=== PATIENT | male | born 1955 | race Caucasian/White ===

== ENCOUNTER 2016-04-22 01:42 | Emergency (ER) | payer OTHER ==
[~2016-04-22] VITALS: Ht 188 cm; Wt 138.3 kg
[2016-04-22] MEDS ORDERED: FAMOTIDINE/PF INJ 20 MG/2 ML VIAL IV ONE ×2 (02:00→02:13)
[2016-04-22] MEDS ORDERED: BELLADONNA /PHENOBARB 5 ML UDC 5 ML UDC PO ONE (02:00)
[2016-04-22] MEDS ORDERED: BELLADONNA /PHENOBARB 5 ML UDC 5 ML UDC ONE (02:13)
[2016-04-22 02:30] LABS: BASOPHILS % (AUTO) 0.3 % (0.0-2.0); DIFF TOTAL % 100 %; EOSINOPHILS # (AUTO) 0.2 /CMM (0.0-0.7); EOSINOPHILS % (AUTO) 1.2 % (0.0-6.0); HEMATOCRIT 46 % (39-51); HEMOGLOBIN 15.4 g/dL (13.5-17.5); LYMPHOCYTES # (AUTO) 2.1 /CMM (0.8-4.8); MEAN CORPUSCULAR HEMOGLOBIN 28 PG (26.0-33.0); MEAN CORPUSCULAR HGB CONC 33 g/dl (31.0-36.0); MEAN CORPUSCULAR VOLUME 84 fL (80-96); MONOCYTES # (AUTO) 0.6 /CMM (0.1-1.30); MONOCYTES % (AUTO) 4.7 % (2.0-12.0); NEUTROPHILS # (AUTO) 10.2 /CMM (1.8-8.9); NEUTROPHILS % (AUTO) 77.8 % (43.0-81.0); PLATELET COUNT (AUTO) 332 /CMM (150-450); RED BLOOD CELL COUNT(AUTO) 5.48 MIL/uL (4.5-6.0); WHITE BLOOD COUNT (AUTO) 13.1 K/uL (4.3-11.0)
[2016-04-22] MEDS ORDERED: MORPHINE SULFATE INJ 2 MG/ML DISP.SYRIN ONE (02:31)
[2016-04-22 02:33] LABS: ANION GAP 16 (5-14); CALCIUM, SERUM 9.2 mg/dL (8.5-10.1); CARBON DIOXIDE 25 mmol/L (21-32); CHLORIDE 107 mmol/L (98-107); CREATININE 1.4 mg/dL (0.6-1.3); GFR 52 mL/min (>60); GLUCOSE 141 mg/dL (74-106); POTASSIUM 4.2 mmol/L (3.5-5.1); SODIUM SERUM 143 mmol/L (136-145); UREA NITROGEN, BLOOD 17 mg/dL (7-18)
[2016-04-22 02:41] LABS: ALANINE AMINOTRANSFERASE 52 U/L (12-78); ALBUMIN 3.4 g/dL (3.4-5.0); ASPARTATE AMINOTRANSFERASE 19 U/L (15-37); BILIRUBIN,DIRECT 0.1 mg/dL (0.0-0.2); BILIRUBIN,TOTAL 0.3 mg/dL (0.2-1.0); INDIRECT BILIRUBIN 0.2 mg/dL (0.0-1.1); TOTAL PROTEIN, SERUM 7.6 g/dL (6.4-8.2); TROPONIN I < 0.017 ng/mL (0.00-0.056)
[2016-04-22] MEDS ORDERED: MORPHINE SULFATE INJ 2 MG/ML DISP.SYRIN IV ONE (03:00)
[2016-04-22 07:32] VITALS: BP 139/81
== END 2016-04-22 07:32 | disposition home or self-care (01) ==
LOC: ER 01:46
DX: R10.13 Epigastric pain (principal); I10 Essential (primary) hypertension; E03.9 Hypothyroidism, unspecified
CPT/HCPCS: 36415; 71010-TC; 76705-TC; 80048-TC; 80076-TC; 83690-TC; 84484-TC; 85025-TC; A4606; J2270; J3490; Z7610

== ENCOUNTER 2016-09-29 02:02 | Emergency (ER) | payer OTHER ==
[~2016-09-29] VITALS: Ht 188 cm; Wt 113.4 kg
--- NOTE | 2016-09-29 02:16 | NUR ---
PT BIBSELF C/O SOB SINCE 1300 AFTER TAKING MEDICATION MINOCYLCINE FOR RASH ON NECK. PT AOX4 RR EVEN AND UNLABORED. NO SOB NOTED. NAD NOTED. NO NVD AT THIS TIME. PT NOT DIAPHORETIC. PT GOWNED AND PLACED ON MONITOR WAITING FOR MD STEPHENS. PT NOTED ANXIOUS.
--- NOTE | 2016-09-29 02:25 | NUR ---
DR. CAPONE AT BEDSIDE FOR EVAL.
--- NOTE | 2016-09-29 03:06 | NUR ---
DR. CAPONE SPEAKING TO PT REGARDING RESULTS.
--- NOTE | 2016-09-29 03:10 | NUR ---
Patient discharged to home in stable condition. Written and verbal after care instructions given. Patient verbalizes understanding of instruction. ambulatory with a steady gait
[2016-09-29 03:11] VITALS: BP 142/78
== END 2016-09-29 03:13 | disposition home or self-care (01) ==
LOC: ER 02:05
DX: F41.9 Anxiety disorder, unspecified (principal); I10 Essential (primary) hypertension; K21.9 Gastro-esophageal reflux disease without esophagitis
CPT/HCPCS: 93005; 99284; A4606; Z7610

== ENCOUNTER 2016-11-20 02:01 | Emergency (ER) | payer OTHER ==
[~2016-11-20] VITALS: Ht 188 cm; Wt 138.3 kg
--- NOTE | 2016-11-20 02:06 | NUR ---
61 YO MALE BIB SELF, PT C/O MID STERNAL CP X 2.5 HOURS, NO SOB NOTED. PT DESCRIBES PAIN BURNING LIKE, NON RADIATING, 3/10. PT SKIN WARM AND DRY, RR EVEN AND UNLABORED. PT GOWNED, PALCED ON PRINTER APPRENTICE. AWAITING ORDERS FROM PROVIDER, WILL CONTINUE TO MONITOR
--- NOTE | 2016-11-20 02:15 | NUR ---
18G RIGHT AC IV STARTED, BLOOD SAMPLE OBTAINED AND SENT TO LAB
[2016-11-20] MEDS ORDERED: ASPIRIN 81 MG TAB.CHEW ONE (02:24)
[2016-11-20] MEDS ORDERED: ASPIRIN 325 MG TABLET PO ONE (02:30)
[2016-11-20 02:43] LABS: BASOPHILS % (AUTO) 0.3 % (0.0-2.0); EOSINOPHILS # (AUTO) 0.2 /CMM (0.0-0.7); EOSINOPHILS % (AUTO) 1.8 % (0.0-6.0); HEMATOCRIT 44 % (39-51); HEMOGLOBIN 14.8 g/dL (13.5-17.5); LYMPHOCYTES # (AUTO) 2.8 /CMM (0.8-4.8); LYMPHOCYTES % (AUTO) 27.8 % (20.0-44.0); MEAN CORPUSCULAR HEMOGLOBIN 28 PG (26.0-33.0); MEAN CORPUSCULAR HGB CONC 33 g/dl (31.0-36.0); MEAN CORPUSCULAR VOLUME 84 fL (80-96); MONOCYTES # (AUTO) 0.8 /CMM (0.1-1.30); MONOCYTES % (AUTO) 7.8 % (2.0-12.0); NEUTROPHILS # (AUTO) 6.2 /CMM (1.8-8.9); NEUTROPHILS % (AUTO) 62.3 % (43.0-81.0); PLATELET COUNT (AUTO) 330 /CMM (150-450); RDW COEFFICIENT OF VARIATION 14.2 (11.5-15.0); RED BLOOD CELL COUNT(AUTO) 5.27 MIL/uL (4.5-6.0)
[2016-11-20 02:45] LABS: INR 0.89 (0.87-1.13); PROTHROMBIN TIME 9.5 SECS (9.5-12.7)
[2016-11-20 02:55] LABS: CARBON DIOXIDE 30 mmol/L (21-32)
[2016-11-20 02:57] LABS: TROPONIN I < 0.017 ng/mL (0.00-0.056)
[2016-11-20 03:05] LABS: SODIUM SERUM 140 mmol/L (136-145)
[2016-11-20 03:06] LABS: CHLORIDE 104 mmol/L (98-107); GLUCOSE 132 mg/dL (74-106); POTASSIUM 3.6 mmol/L (3.5-5.1); UREA NITROGEN, BLOOD 14 mg/dL (7-18)
[2016-11-20 03:30] VITALS: BP 144/94
--- NOTE | 2016-11-20 03:31 | NUR ---
PT RESTING IN ER BED, NAD NOTED, PT IS ON PILOT SUBMERSIBLE. VITAL SIGNS UPDATED.
[2016-11-20] MEDS ORDERED: SIMETHICONE 80 MG TAB.CHEW ONE (05:46)
--- NOTE | 2016-11-20 05:49 | NUR ---
MEDICTAED PT PER VERBAL ORDER MD GUERRERO: SIMETHICONE 80MG CHEW TAB PO
== END 2016-11-20 06:21 | disposition other institution (70) ==
LOC: ER 02:03
DX: R07.89 Other chest pain (principal); K21.9 Gastro-esophageal reflux disease without esophagitis; E78.00 Pure hypercholesterolemia, unspecified
CPT/HCPCS: 36415; 71010; 80048; 84484 ×2; 85025; 85730; 93005 ×2; 99285; A4606; Z7610

== ENCOUNTER 2017-11-13 20:16 | Emergency (ER) | payer OTHER ==
[~2017-11-13] VITALS: Ht 180.3 cm; Wt 114.8 kg
--- NOTE | 2017-11-13 20:16 | NUR ---
"CP [id number]" 8 PRESSURE LIKE AND SHARP PT IS HYPERTENSIVE BUT OTHERWISE VSS NO ACUTE DISTRESS AT THIS TIME. PT IS ALERT AND ORIENTED X3 ABLE TO MAKE NEEDS KNOWN. WILL CONTINUE TO MONITOR FOR ANY CHANGES DURING THE SHIFT.
--- NOTE | 2017-11-13 20:17 | NUR ---
ER MD RIVAS AT BEDSIDE FOR EVAL
[2017-11-13 20:56] LABS: BASOPHILS # (AUTO) 0.2 /CMM (0.0-0.2); BASOPHILS % (AUTO) 2.1 % (0.0-2.0); EOSINOPHILS % (AUTO) 1.8 % (0.0-6.0); HEMATOCRIT 47 % (39-51); HEMOGLOBIN 15.4 g/dL (13.5-17.5); LYMPHOCYTES # (AUTO) 2.7 /CMM (0.8-4.8); LYMPHOCYTES % (AUTO) 23.2 % (20.0-44.0); MEAN CORPUSCULAR HEMOGLOBIN 28 PG (26.0-33.0); MEAN CORPUSCULAR HGB CONC 33 g/dl (31.0-36.0); MEAN CORPUSCULAR VOLUME 85 fL (80-96); MONOCYTES # (AUTO) 0.9 /CMM (0.1-1.30); MONOCYTES % (AUTO) 8.1 % (2.0-12.0); NEUTROPHILS # (AUTO) 7.5 /CMM (1.8-8.9); NEUTROPHILS % (AUTO) 64.8 % (43.0-81.0); PLATELET COUNT (AUTO) 370 /CMM (150-450); RDW COEFFICIENT OF VARIATION 13.8 (11.5-15.0); RED BLOOD CELL COUNT(AUTO) 5.51 MIL/uL (4.5-6.0); WHITE BLOOD COUNT (AUTO) 11.5 K/uL (4.3-11.0)
[2017-11-13 21:07] LABS: CARBON DIOXIDE 29 mmol/L (21-32); CHLORIDE 107 mmol/L (98-107); CREATININE 1.2 mg/dL (0.6-1.3); GLUCOSE 126 mg/dL (74-106); POTASSIUM 3.9 mmol/L (3.5-5.1); SODIUM SERUM 140 mmol/L (136-145); UREA NITROGEN, BLOOD 16 mg/dL (7-18)
--- NOTE | 2017-11-13 21:09 | NUR ---
POWER CRANE OPERATOR AT BEDSIDE
[2017-11-13 21:16] LABS: TROPONIN I < 0.017 ng/mL (0.00-0.056)
[2017-11-13 21:25] LABS: INR 0.91 (0.85-1.15)
[2017-11-13] MEDS ORDERED: HYDROMORPHONE INJ 2 MG/ML DISP.SYRIN IV ONE (21:30)
[2017-11-13] MEDS ORDERED: MAG HYDROX/AL HYDROX/SIMETH 30 ML UDC PO ONE (21:30)
[2017-11-13] MEDS ORDERED: METOCLOPRAMIDE HCL 10 MG/2 ML VIAL IV ONE (21:30)
[2017-11-13] MEDS ORDERED: HYDROMORPHONE INJ 2 MG/ML DISP.SYRIN ONE (21:35)
[2017-11-13] MEDS ORDERED: METOCLOPRAMIDE HCL 10 MG/2 ML VIAL ONE (21:35)
[2017-11-13] MEDS ORDERED: MAG HYDROX/AL HYDROX/SIMETH 30 ML UDC ONE (21:35)
[2017-11-13] MEDS ORDERED: FAMOTIDINE (20 MG) 20 MG TABLET ONE (22:29)
[2017-11-13 22:30] LABS: ALBUMIN 3.2 g/dL (3.4-5.0); BILIRUBIN,DIRECT 0.1 mg/dL (0.0-0.2); BILIRUBIN,TOTAL 0.5 mg/dL (0.2-1.0); TOTAL PROTEIN, SERUM 7.4 g/dL (6.4-8.2)
[2017-11-13] MEDS ORDERED: FAMOTIDINE (20 MG) 20 MG TABLET PO ONE (22:30)
--- NOTE | 2017-11-13 23:40 | NUR ---
AWAITING 2ND TROPONIN BLOOD DRAW
[2017-11-14 01:08] VITALS: BP 169/80
== END 2017-11-14 01:09 | disposition home or self-care (01) ==
LOC: ER 20:17
DX: R07.89 Other chest pain (principal); R10.13 Epigastric pain; K21.9 Gastro-esophageal reflux disease without esophagitis; Z98.890 Other specified postprocedural states
CPT/HCPCS: 36415; 71045; 80048; 80076; 83690; 84484 ×2; 85025; 85730; 93005; 96374; 96375; 99285; A4606; J1170; J2765; J7050; Z7610

== ENCOUNTER 2018-04-16 10:54 | Emergency (ER) | payer OTHER ==
[~2018-04-16] VITALS: Ht 188 cm; Wt 156.5 kg
--- NOTE | 2018-04-16 11:03 | NUR ---
DR REYES AT BEDSIDE
[2018-04-16] MEDS ORDERED: ONDANSETRON HCL/PF 4 MG/2 ML VIAL ONE (11:11)
[2018-04-16] MEDS ORDERED: KETOROLAC TROMETHAMINE 15 MG/ML VIAL ONE (11:11)
[2018-04-16] MEDS ORDERED: HYDROMORPHONE INJ 0.5 MG/0.5 ML SYRINGE ONE (11:12)
--- NOTE | 2018-04-16 11:17 | NUR ---
C/O SHARP FLANK PAIN SINCE THIS MORNING, 10/10 PS, AFEBRILE. HX KIDNEY STONES. PT IS AOX4, AMB, VSS, RR EVEN AND UNLABORED. SKIN WARM, DRY, INTACT. NO ACUTE DISTRESS NOTED. DENIES SOB, DIZZINESS, WEAKNESS, N/V. READY FOR EVAL.
[2018-04-16 11:26] LABS: BASOPHILS # (AUTO) 0.1 /CMM (0.0-0.2); BASOPHILS % (AUTO) 0.9 % (0.0-2.0); EOSINOPHILS % (AUTO) 2.2 % (0.0-6.0); HEMATOCRIT 46 % (39-51); HEMOGLOBIN 15.8 g/dL (13.5-17.5); LYMPHOCYTES # (AUTO) 1.8 /CMM (0.8-4.8); LYMPHOCYTES % (AUTO) 22.4 % (20.0-44.0); MEAN CORPUSCULAR HGB CONC 35 g/dl (31.0-36.0); MEAN CORPUSCULAR VOLUME 85 fL (80-96); MONOCYTES # (AUTO) 0.5 /CMM (0.1-1.30); MONOCYTES % (AUTO) 5.7 % (2.0-12.0); NEUTROPHILS # (AUTO) 5.6 /CMM (1.8-8.9); NEUTROPHILS % (AUTO) 68.8 % (43.0-81.0); PLATELET COUNT (AUTO) 311 /CMM (150-450); RED BLOOD CELL COUNT(AUTO) 5.38 MIL/uL (4.5-6.0); WHITE BLOOD COUNT (AUTO) 8.1 K/uL (4.3-11.0)
[2018-04-16 11:27] LABS: APPEARANCE,URINE Cloudy (CLEAR); BILIRUBIN,URINE SMALL (NEGATIVE); BLOOD, URINE Large Ery/uL (NEGATIVE); COLOR,URINE Yellow (YELLOW); KETONES,URINE Trace (NEGATIVE); LEUKOCYTE ESTERASE ,URINE Negative (NEGATIVE); NITRITE, URINE Negative (NEGATIVE); PH,URINE 5.5 (5.0-8.0); PROTEIN,URINE Negative (NEGATIVE); UGLUCOSE Negative (NEGATIVE); UROBILINOGEN,URINE 0.2 EU/dL (0.2)
[2018-04-16] MEDS ORDERED: ONDANSETRON HCL/PF 4 MG/2 ML VIAL IVP ONE (11:30)
[2018-04-16] MEDS ORDERED: KETOROLAC TROMETHAMINE INJ 30 MG/ML VIAL IV ONE (11:30)
[2018-04-16] MEDS ORDERED: HYDROMORPHONE INJ 2 MG/ML DISP.SYRIN IV ONE (11:30)
[2018-04-16] MEDS ORDERED: IV NS 0.9% 1,000 ML BAG IV ONE (11:30)
[2018-04-16 11:31] LABS: CALCIUM, SERUM 8.8 mg/dL (8.5-10.1); CREATININE 1.1 mg/dL (0.6-1.3); POTASSIUM 4.2 mmol/L (3.5-5.1)
--- NOTE | 2018-04-16 11:36 | NUR ---
PT TAKEN TO CT VIA [facility]
--- NOTE | 2018-04-16 11:45 | NUR ---
PT BACK FROM CT. MESHA WELL. RECONNECTED IVF AND ON MONITOR.
[2018-04-16 11:53] LABS: BACTERIA,URINE None seen /HPF (None Seen); WBC,URINE 0-2 /HPF (0-3)
[2018-04-16 11:54] LABS: SQUAMOUS EPITHELIAL CELL,UR Few /HPF (None Seen)
--- NOTE | 2018-04-16 12:26 | NUR ---
Patient discharged to home in stable condition. Written and verbal after care instructions given. Patient verbalizes understanding of instruction.
--- NOTE | 2018-04-16 12:26 | NUR ---
IV removed. Catheter intact and site benign. Pressure and 4x4 applied to site. No bleeding noted.
[2018-04-16 12:27] VITALS: BP 141/64
== END 2018-04-16 12:24 | disposition home or self-care (01) ==
LOC: ER 10:55
DX: M54.9 Dorsalgia, unspecified (principal); R11.2 Nausea with vomiting, unspecified; K21.9 Gastro-esophageal reflux disease without esophagitis; Z90.49 Acquired absence of other specified parts of digestive tract; Z98.890 Other specified postprocedural states
CPT/HCPCS: 36415; 74176; 80048; 81001; 85025; 96361; 96374; 96375; 99284; A4606; J1885; J2405; J7030; Z7610; 81000-TC

== ENCOUNTER 2018-05-21 23:52 | Emergency (ER) | payer OTHER ==
[~2018-05-21] VITALS: Ht 188 cm; Wt 152.0 kg
[2018-05-22 00:32] VITALS: BP 177/93
[2018-05-22] MEDS ORDERED: KETOROLAC TROMETHAMINE INJ 60 MG/2 ML VIAL IM ONE ×2 (01:00→01:53)
[2018-05-22] MEDS ORDERED: HYDROMORPHONE 1 MG/1 ML DISP.SYRIN IM ONE (01:00)
[2018-05-22 01:29] LABS: APPEARANCE,URINE CLEAR (CLEAR); BILIRUBIN,URINE NEGATIVE (NEGATIVE); BLOOD, URINE 3+ Ery/uL (NEGATIVE); COLOR,URINE YELLOW (YELLOW); KETONES,URINE NEGATIVE (NEGATIVE); LEUKOCYTE ESTERASE ,URINE NEGATIVE (NEGATIVE); NITRITE, URINE NEGATIVE (NEGATIVE); PH,URINE 5.5 (5.0-8.0); PROTEIN,URINE TRACE mg/dl (NEGATIVE); UGLUCOSE NEGATIVE (NEGATIVE); UROBILINOGEN,URINE 0.2 EU/dL (0.2)
[2018-05-22 01:38] LABS: BACTERIA,URINE Few /HPF (None Seen); RBC,URINE TOO NUMEROUS TO COUN /HPF (0-2); SQUAMOUS EPITHELIAL CELL,UR Rare /HPF (None Seen)
[2018-05-22] MEDS ORDERED: HYDROMORPHONE 1 MG/1 ML DISP.SYRIN ONE (01:54)
== END 2018-05-22 02:30 | disposition home or self-care (01) ==
LOC: ER 23:55
DX: N23 Unspecified renal colic (principal); K21.9 Gastro-esophageal reflux disease without esophagitis; Z87.442 Personal history of urinary calculi; Z98.890 Other specified postprocedural states; Z87.891 Personal history of nicotine dependence; Z60.2 Problems related to living alone
CPT/HCPCS: 81001; 96372 ×2; 99283; A4606; J1170; J1885; 81000-TC

== ENCOUNTER 2019-03-19 16:01 | Emergency (ER) | payer OTHER ==
[~2019-03-19] VITALS: Ht 188 cm; Wt 149.7 kg
--- NOTE | 2019-03-19 16:26 | NUR ---
PATIENT ARRIVED AT UNIT. REPORTED "Chest pain started around 2pm mid chest with Nausea. +ROLON". CONNECTED TO MONITOR. WILL CONTINUE TO MONITOR ACOORDINGLY
[2019-03-19 16:52] LABS: BASOPHILS # (AUTO) 0.1 /CMM (0.0-0.2); BASOPHILS % (AUTO) 0.8 % (0.0-2.0); EOSINOPHILS % (AUTO) 2.2 % (0.0-6.0); HEMATOCRIT 42 % (39-51); HEMOGLOBIN 14.1 g/dL (13.5-17.5); LYMPHOCYTES # (AUTO) 1.9 /CMM (0.8-4.8); LYMPHOCYTES % (AUTO) 21.5 % (20.0-44.0); MEAN CORPUSCULAR HGB CONC 33 g/dl (31.0-36.0); MEAN CORPUSCULAR VOLUME 84 fL (80-96); MONOCYTES # (AUTO) 0.6 /CMM (0.1-1.30); MONOCYTES % (AUTO) 7.3 % (2.0-12.0); NEUTROPHILS # (AUTO) 5.9 /CMM (1.8-8.9); NEUTROPHILS % (AUTO) 68.2 % (43.0-81.0); PLATELET COUNT (AUTO) 337 /CMM (150-450); RED BLOOD CELL COUNT(AUTO) 5.05 MIL/uL (4.5-6.0); WHITE BLOOD COUNT (AUTO) 8.6 K/uL (4.3-11.0)
[2019-03-19] MEDS ORDERED: KETOROLAC TROMETHAMINE 15 MG/ML VIAL ONE (16:55)
[2019-03-19] MEDS ORDERED: ONDANSETRON HCL/PF 4 MG/2 ML VIAL ONE (16:56)
[2019-03-19] MEDS ORDERED: IV NS 0.9% 500 ML BAG IV ONE (17:00)
[2019-03-19] MEDS ORDERED: ONDANSETRON HCL/PF 4 MG/2 ML VIAL IVP ONE (17:00)
[2019-03-19] MEDS ORDERED: KETOROLAC TROMETHAMINE INJ 30 MG/ML VIAL IV ONE (17:00)
[2019-03-19 17:07] LABS: CALCIUM, SERUM 8.6 mg/dL (8.5-10.1); CARBON DIOXIDE 25 mmol/L (21-32); CHLORIDE 105 mmol/L (98-107); CREATININE 1.1 mg/dL (0.6-1.3); GLUCOSE 213 mg/dL (74-106); POTASSIUM 3.9 mmol/L (3.5-5.1); SODIUM SERUM 140 mmol/L (136-145); UREA NITROGEN, BLOOD 15 mg/dL (7-18)
[2019-03-19 17:12] LABS: ALANINE AMINOTRANSFERASE 26 U/L (12-78); ALBUMIN 2.9 g/dL (3.4-5.0); ALKALINE PHOSPHATASE 103 U/L (46-116); ASPARTATE AMINOTRANSFERASE 11 U/L (15-37); BILIRUBIN,DIRECT 0.1 mg/dL (0.0-0.2); BILIRUBIN,TOTAL 0.2 mg/dL (0.2-1.0); LIPASE 133 U/L (73-393); TOTAL PROTEIN, SERUM 6.7 g/dL (6.4-8.2)
--- NOTE | 2019-03-19 18:57 | NUR ---
IV removed. Catheter intact and site benign. Pressure and 4x4 applied to site. No bleeding noted.Patient discharged to home in stable condition. Written and verbal after care instructions given. Patient verbalizes understanding of instruction.
[2019-03-19 19:00] VITALS: BP 151/59
== END 2019-03-19 19:00 | disposition home or self-care (01) ==
LOC: ER 16:03
DX: R07.89 Other chest pain (principal); R42 Dizziness and giddiness; R51 Headache; K21.9 Gastro-esophageal reflux disease without esophagitis; E78.00 Pure hypercholesterolemia, unspecified; I10 Essential (primary) hypertension; N40.0 Benign prostatic hyperplasia without lower urinary tract symptoms; F17.200 Nicotine dependence, unspecified, uncomplicated; E66.9 Obesity, unspecified; Z60.2 Problems related to living alone; Z98.890 Other specified postprocedural states; Z68.41 Body mass index [BMI] 40.0-44.9, adult
CPT/HCPCS: 36415; 71045; 80048; 80076; 83690; 84484; 85025; 96374; 96375; 99284; J1885; J2405; J7040; J7030

== ENCOUNTER 2019-07-08 17:07 | Emergency (ER) | payer OTHER ==
[~2019-07-08] VITALS: Ht 190.5 cm; Wt 154.2 kg
--- NOTE | 2019-07-08 17:10 | NUR ---
aaox3, BIB SELF C/O CHEST PAIN SHARP RADIATES TO THE BACK STARTED 1500H. Patient denies any chest pain during assessment. RR is even and unlabored with NAD noted. Placed on traffic monitor specialist. Will continue to monitor. Awaiting md for eval.
--- NOTE | 2019-07-08 17:13 | NUR ---
DR CORDOBA AT BEDSIDE FOR EVAL
--- NOTE | 2019-07-08 17:20 | NUR ---
Blood obtained sent to the lab.
[2019-07-08] MEDS ORDERED: NITROGLYCERIN 0.4 MG/TAB BOTTLE ONE ×2 (17:24→18:11)
[2019-07-08] MEDS ORDERED: ASPIRIN 325 MG TABLET ONE (17:25)
--- NOTE | 2019-07-08 17:25 | NUR ---
Dr Card at for eval.
[2019-07-08] MEDS ORDERED: NITROGLYCERIN 0.4 MG/TAB BOTTLE SL ONE ×2 (17:30→18:30)
[2019-07-08] MEDS ORDERED: ASPIRIN 325 MG TABLET PO ONE (17:30)
[2019-07-08 17:32] LABS: BASOPHILS # (AUTO) 0.1 /CMM (0.0-0.2); BASOPHILS % (AUTO) 0.8 % (0.0-2.0); EOSINOPHILS % (AUTO) 2.2 % (0.0-6.0); HEMATOCRIT 44 % (39-51); HEMOGLOBIN 14.6 g/dL (13.5-17.5); LYMPHOCYTES # (AUTO) 1.9 /CMM (0.8-4.8); LYMPHOCYTES % (AUTO) 19.8 % (20.0-44.0); MEAN CORPUSCULAR HGB CONC 33 g/dl (31.0-36.0); MEAN CORPUSCULAR VOLUME 85 fL (80-96); MONOCYTES # (AUTO) 0.9 /CMM (0.1-1.30); MONOCYTES % (AUTO) 9.1 % (2.0-12.0); NEUTROPHILS # (AUTO) 6.4 /CMM (1.8-8.9); NEUTROPHILS % (AUTO) 68.1 % (43.0-81.0); PLATELET COUNT (AUTO) 334 /CMM (150-450); RED BLOOD CELL COUNT(AUTO) 5.17 MIL/uL (4.5-6.0); WHITE BLOOD COUNT (AUTO) 9.4 K/uL (4.3-11.0)
[2019-07-08 17:33] LABS: CALCIUM, SERUM 9.2 mg/dL (8.5-10.1); CARBON DIOXIDE 25 mmol/L (21-32); CHLORIDE 106 mmol/L (98-107); CREATININE 1.3 mg/dL (0.6-1.3); GLUCOSE 218 mg/dL (74-106); POTASSIUM 4.1 mmol/L (3.5-5.1); SODIUM SERUM 141 mmol/L (136-145); UREA NITROGEN, BLOOD 21 mg/dL (7-18)
--- NOTE | 2019-07-08 18:10 | NUR ---
PATIENT AGREED TO TAKE NITROSTAT 0.4MG SL. AWARE
[2019-07-08] MEDS ORDERED: IV NS 0.9% 250 ML IV ONE (18:27)
[2019-07-08] MEDS ORDERED: IOHEXOL-350 100 ML VIAL IV ONE (18:27)
--- NOTE | 2019-07-08 19:26 | NUR ---
REPORT GIVEN TO JEMMA CORONA FOR BERNADETTE
--- NOTE | 2019-07-08 19:28 | NUR ---
Jose null in ED - 07/08/19 at 1929 by ANTHONY TOOK OVER PT CARE. PT PLACED ON MONITOR AND PULSE OX. EXPLAINED UPDATES TO THE PT, WILL CONTINUE TO MONITOR.
--- NOTE | 2019-07-08 19:29 | NUR ---
TOOK OVER PT CARE. PT PLACED ON MONITOR AND PULSE OX. EXPLAINED UPDATES TO THE PT, WILL CONTINUE TO MONITOR.
--- NOTE | 2019-07-08 19:34 | NUR ---
IV removed. Catheter intact and site benign. Pressure and 4x4 applied to site. No bleeding noted.
--- NOTE | 2019-07-08 19:44 | NUR ---
Patient discharged to home in stable condition. Written and verbal after care instructions given. Patient verbalizes understanding of instruction. Pt ambulatory w steady gait.
[2019-07-08 19:45] VITALS: BP 141/87
== END 2019-07-08 19:46 | disposition home or self-care (01) ==
LOC: ER 17:07
DX: R07.89 Other chest pain (principal); K21.9 Gastro-esophageal reflux disease without esophagitis; I10 Essential (primary) hypertension; E78.00 Pure hypercholesterolemia, unspecified; Z98.890 Other specified postprocedural states; Z60.2 Problems related to living alone
CPT/HCPCS: 36415; 71045; 71275; 74174; 80048; 84484; 85025; 85378; 93005 ×2; 99285; J7050; Q9967

== ENCOUNTER 2020-02-22 23:51 | Emergency (ER) | payer OTHER ==
[~2020-02-22] VITALS: Ht 188 cm; Wt 158.3 kg
[2020-02-23 00:28] VITALS: BP 165/89
--- NOTE | 2020-02-23 00:58 | NUR ---
Patient discharged to home in stable condition. Written and verbal after care instructions given. Patient verbalizes understanding of instruction.
== END 2020-02-23 00:59 | disposition home or self-care (01) ==
LOC: ER 23:53
DX: Z00.00 Encounter for general adult medical examination without abnormal findings (principal); T38.3X5A Adverse effect of insulin and oral hypoglycemic [antidiabetic] drugs, initial encounter; I10 Essential (primary) hypertension; E11.9 Type 2 diabetes mellitus without complications; N40.0 Benign prostatic hyperplasia without lower urinary tract symptoms; Z98.890 Other specified postprocedural states; Z87.891 Personal history of nicotine dependence; Y92.89 Other specified places as the place of occurrence of the external cause
CPT/HCPCS: 82962-TC